=== PATIENT | female | born 1970 | race Hispanic/Latino ===

== ENCOUNTER 2019-03-03 07:40 | Emergency (ER) | payer OTHER ==
[~2019-03-03] VITALS: Ht 165.1 cm; Wt 77.1 kg
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
[2019-03-03] MEDS ORDERED: SCOPOLAMINE 1.5 MG PATCH TOP ONE (08:00)
[2019-03-03] MEDS ORDERED: ONDANSETRON HCL 4 MG ORAL DISINTEGRATING TAB PO ONE (08:00)
[2019-03-03] MEDS ORDERED: MECLIZINE HCL 12.5 MG TAB PO ONE (08:00)
[2019-03-03] MEDS ORDERED: MECLIZINE HCL 12.5 MG TAB ONE ×2 (08:12→08:13)
[2019-03-03] MEDS ORDERED: ONDANSETRON HCL 4 MG ORAL DISINTEGRATING TAB ONE (08:12)
== END 2019-03-03 09:46 | disposition home or self-care (01) ==
LOC: FSED 07:40
DX: J01.00 Acute maxillary sinusitis, unspecified (principal); H83.03 Labyrinthitis, bilateral; R42 Dizziness and giddiness; I10 Essential (primary) hypertension
CPT/HCPCS: 99283; Q0162

== ENCOUNTER → 2020-05-27 | Day surgery (SDC) | payer OTHER ==
[~2020-05-27] MED LIST: AUGMENTIN 500-1 EACH PO; CENTRUM WOMEN1 EACH; CRANBERRY400 MG; FENTANYL CITRATE/PF 100MCG/2 ML INJ ONE; MIDAZOLAM HCL 2 MG/2 ML VIAL ONE; PROPOFOL IV EMULSION 10 MG/ML 20 ML VIAL ONE
[2020-05-27 08:38] VITALS: BP 128/82
--- NOTE | 2020-05-27 09:17 | Operative Report ---
DATE OF PROCEDURE: 05/27/2020 SURGEON: Junito Paez MD PROCEDURE: EGD with biopsies. INDICATION FOR PROCEDURE: Heartburn, nausea. MEDICATIONS: The patient was done under MAC. Please see anesthesiologist's note. PROCEDURE IN DETAIL: With the patient in left lateral decubitus position, the flexible fiberoptic Olympus gastroscope was introduced into the esophagus under direct visualization without any difficulty. There was some patchy erythema noted in distal esophagus. The scope was then advanced with ease into the stomach. Mucosa overlying the antrum and the body revealed some diffuse erythema mild to moderate edema, and biopsies were obtained and sent to stain for H. pylori. An approximately 6 mm submucosal nodule? Carcinoid was noted in the proximal body anterior wall that was biopsied. The pylorus was of normal contour and shape was intubated with ease and the scope was advanced all the way to the second portion of the duodenum. Biopsies were obtained from the proximal second portion and the duodenal bulb to rule out sprue. The scope was then withdrawn back into the stomach and retroflexed mucosa overlying the fundus and cardia appeared to be within normal limits. The scope was then straightened out, it was subsequently withdrawn. The patient tolerated procedure well. IMPRESSION: 1. Distal esophagitis, mild. 2. Gastritis, biopsied. Biopsies sent to stain for H pylori. 3. Approximately 6 mm submucosal nodule, upper body anterior wall? Carcinoid, biopsied. 4. Rule out sprue. PLAN: Follow up histology. Initiate Protonix 40 mg one p.o. q.a.m. a.c. Junito Paez MD [facility] /[id number] cc: Dr. Morales
== END | disposition home or self-care (01) ==
LOC: OR 06:11
PROVIDERS: ATTEND Internal Medicine Gastroenterology
DX: K20.90 Esophagitis, unspecified without bleeding (principal); K29.70 Gastritis, unspecified, without bleeding; R12 Heartburn; R11.0 Nausea; R03.0 Elevated blood-pressure reading, without diagnosis of hypertension; Z68.33 Body mass index [BMI] 33.0-33.9, adult; Z01.812 Encounter for preprocedural laboratory examination; Z11.59 Encounter for screening for other viral diseases
CPT/HCPCS: 43239; 81025; J2704; U0002; J2250; J3010

== ENCOUNTER → 2020-07-08 | Day surgery (SDC) | payer OTHER ==
[~2020-07-08] MED LIST changes: +OMEGA-31000 MG PO; +PROTONIX20 MG PO
[2020-07-08 11:20] VITALS: BP 136/89
--- NOTE | 2020-07-08 12:06 | Operative Report ---
DATE OF PROCEDURE: 07/08/2020 SURGEON: Junito Paez MD PROCEDURES: EGD with polypectomy and hemoclipping x2. INDICATION FOR PROCEDURE: EGD is being carried out for removal of gastric submucosal nodule. MEDICATIONS: The patient was done under MAC, please see anesthesiologist's note. PROCEDURE IN DETAIL: With the patient in left lateral decubitus position, a flexible fiberoptic Olympus gastroscope was introduced into the esophagus under direct visualization without any difficulty. The esophagus appeared to be within normal limits. The scope was then advanced with ease into the stomach and mucosa overlying the antrum and the body revealed some patchy areas of erythema. Pylorus was of normal contour and shape. The scope was advanced all the way to the second portion of the duodenum, mucosa overlying the proximal second portion and the duodenal bulb grossly appeared to be within normal limits. The scope was then withdrawn back into the stomach and retroflexed, mucosa overlying the fundus and cardia appeared to be within normal limits. The previously described submucosal nodule was identified. It was in the proximal body anterior wall, approximately 6 mm in size, and that was removed per hot snare polypectomy and site was hemoclipped x2. The scope was subsequently withdrawn. The patient tolerated the procedure well. IMPRESSION: 1. Normal esophagus. 2. Gastric submucosal nodule, approximately 6 mm in size, upper body anterior wall, hot snared and polypectomy site hemoclipped x2. PLAN: 1. Follow up histology. 2. Continue Protonix 40 mg one p.o. q.a.m. a.c. Junito Paez MD [facility] [place]/ASIM[facility] /[id number] cc: DR. MORALES RAMAN
== END | disposition home or self-care (01) ==
LOC: OR 07:34
PROVIDERS: ATTEND Internal Medicine Gastroenterology
DX: K29.70 Gastritis, unspecified, without bleeding (principal); K31.89 Other diseases of stomach and duodenum; R12 Heartburn; Z68.32 Body mass index [BMI] 32.0-32.9, adult; R03.0 Elevated blood-pressure reading, without diagnosis of hypertension; E78.00 Pure hypercholesterolemia, unspecified; Z01.810 Encounter for preprocedural cardiovascular examination; Z01.812 Encounter for preprocedural laboratory examination; Z20.828 Contact with and (suspected) exposure to other viral communicable diseases
CPT/HCPCS: 43250; 81025; 93005; J2250; J2704; J3010; U0002; 43251

== ENCOUNTER 2021-01-18 23:51 | Emergency (ER) | payer OTHER ==
[~2021-01-18] VITALS: Ht 154.9 cm; Wt 72.6 kg
[~2021-01-18 23:51] MED LIST changes: -FENTANYL CITRATE/PF 100MCG/2 ML INJ ONE; -MIDAZOLAM HCL 2 MG/2 ML VIAL ONE; -PROPOFOL IV EMULSION 10 MG/ML 20 ML VIAL ONE
[2021-01-19] MEDS ORDERED: LOSARTAN POTASS50 MG PO (02:33)
[2021-01-19] MEDS ORDERED: ACETAMINOPHEN 325 MG TAB ONE (02:35)
== END 2021-01-19 02:52 | disposition home or self-care (01) ==
LOC: FSED 01-19 02:50
DX: R03.0 Elevated blood-pressure reading, without diagnosis of hypertension (principal); F43.9 Reaction to severe stress, unspecified; E78.5 Hyperlipidemia, unspecified; K21.9 Gastro-esophageal reflux disease without esophagitis
CPT/HCPCS: 99283